=== PATIENT | male | born 1985 | race Caucasian/White ===

== ENCOUNTER 2021-10-31 18:40 | Emergency (ER) | payer MEDICAID ==
[~2021-10-31] VITALS: Ht 180.3 cm; Wt 66.0 kg
[2021-10-31] MEDS ORDERED: ACETAMINOPHEN 325MG TABLET PO ONE (19:30)
[2021-10-31 21:30] VITALS: BP 113/84
== END 2021-10-31 22:00 | disposition home or self-care (01) ==
LOC: ER 18:40
DX: R51.9 Headache, unspecified (principal); Z87.828 Personal history of other (healed) physical injury and trauma
CPT/HCPCS: 99284